=== PATIENT | female | born 1990 | race Caucasian/White ===

== ENCOUNTER 2019-05-18 10:48 | Emergency (ER) | payer OTHER, SELFPAY ==
[2019-05-18 11:16] VITALS: BP 145/75; PULSE 128; RESP 20; TEMP 37.5; O2SAT 100
--- NOTE | 2019-05-18 11:51 | ED.GENADULT ---
HPI - General Adult General Chief complaint: Dental/Oral Stated complaint: Swelling left side of face Time Seen by Provider: 05/18/19 11:51 Source: patient and RN notes reviewed Mode of arrival: ambulatory Limitations: no limitations History of Present Illness HPI narrative: 28-year-old female who presents to [facility] with small amount of swelling to her left facial region. Patient was seen on Tuesday and started on antibiotic for her dental pain to #22 molar which patient states has been giving her problems with the back portion of filing gone. Patient states that she noted some facial swelling to the left lower area of her face which started yesterday. She called her dentist but could not be seen and was told to come here. Patient states no difficulty with swallowing, is able to open mouth fully, no abscess of gum noted, patient states pain to tooth only with palpation. MD complaint: facial swelling Onset (ago): week(s) (dental problem one week swelling toleft side of face 1 day) Location: face Radiation: non-radiation Severity: mild Severity scale (1-10): 2 Quality: aching Pain Consistency: intermittent Relieving factors: cold therapy Exacerbating factors: eating Associated symptoms: other (left lower facial swelling) Treatments prior to arrival: NSAID and cold therapy Related Data Home Medications Medication Instructions Recorded Confirmed dextroamphetamine-amphetamine 20 mg PO USEASDIRECTD 05/18/19 05/18/19 [Adderall XR] Allergies Allergy/AdvReac Type Severity Reaction Status Date / Time Sulfa (Sulfonamide Allergy Unknown Unknown Verified 05/14/19 14:26 Antibiotics) Review of Systems Review of Systems: All systems reviewed & are unremarkable except as noted in HPI and below Constitutional: Constitutional: Reports as per HPI and Reports no additional constitutional complaints Eyes: Eyes: Reports as per HPI and Reports no additional eye complaints ENT: Reports system reviewed and no additional complaints, except as documented and Reports as per HPI Comments: left lower facial swelling, dental caries left lower molar Cardiovascular: Cardiovascular: Reports as per HPI and Reports no additional cardiovascular complaints Respiratory: Respiratory: Reports as per HPI and Reports no additional respiratory complaints Gastrointestinal: Gastrointestinal: Reports as per HPI and Reports no additional gastrointestinal complaints Genitourinary: Genitourinary: Reports no additional female genitourinary complaints and Reports as per HPI Musculoskeletal: Musculoskeletal: Reports no additional musculoskeletal complaints and Reports as per HPI Integumentary/Breasts: Skin/Breast: Reports system reviewed and no additional complaints, except as docu and Reports as per HPI Neurologic: Reports system reviewed and no additional complaints, except as documented and Reports as per HPI Psychiatric: Psychiatric: Reports no additional psychiatric complaints and Reports as per HPI Endocrine: Endocrine: Reports no additional endocrine complaints and Reports as per HPI Hematologic/Lymphatic: Hematologic/Lymphatic: Reports no additional hematologic/lymphatic complaints and Reports as per HPI Allergic/Immunologic: Allergic/Immunologic: Reports no additional allergic/immunologic complaints and Reports as per HPI Comments: no trismus, no Jordon angina noted, no respiratory difficulty or difficulty with swallowing PMFSH Past Medical History Medical History ADHD (attention deficit hyperactivity disorder) Social History Social History (Updated 05/19/19 @ 16:20 by Danyelle Payton NP) Smoking status: Never smoker Living arrangements: with family Occupation/Education: occupation Additional occupation/education comments: nurse Gender identity (if verbalized by the patient): Female Comments At time of signature, agree with nursing past medical, surgical, social and
== END 2019-05-18 12:28 | disposition home or self-care (01) ==
PROVIDERS: Emergency Provider Registered Nurse
DX: K02.9 Dental caries, unspecified (principal); R22.0 Localized swelling, mass and lump, head; F90.9 Attention-deficit hyperactivity disorder, unspecified type
CPT/HCPCS: 99213; G0463